=== PATIENT | male | born 1965 | race Caucasian/White ===

== ENCOUNTER 2024-08-28 06:05 | Emergency (ER) | payer MEDICAID, SELFPAY ==
[2024-08-28 06:05] VITALS: BMI 26.7
[2024-08-28 06:16] VITALS: BP 171/80; PULSE 78; RESP 18; TEMP 36.6; O2SAT 96
--- NOTE | 2024-08-28 06:35 | EDNOTE_ITS ---
<Statement entered by Alexandra Ventura MD - 08/29/24 15:27> As co-signing physician, I was present and available for consult prn. I concur with the plan and care as documented by the midlevel provider. ED Eye Problem RME/HPI General Chief complaint: Eye Problems Stated complaint: R eye redness, pain Time Seen by Provider: 08/28/24 06:34 Arrival date/time: 08/28/24 06:05 58-year-old male presents the emergency department stating he was putting a tree yesterday got something in his right eye patient reports irritation to the right eye. Patient reports no disturbances in vision Limitations: no limitations Related Data Previous Rx's ?Medication ?Instructions ?Recorded ibuprofen 600 mg tablet 600 mg PO Q6H #30 tabs 08/28/24 tobramycin 0.3 % eye drops 2 drp ophthalmic (eye) Q4H 5 days 08/28/24 #5 mL Allergies Allergy/AdvReac Type Severity Reaction Status Date / Time No Known Allergies Allergy Verified 10/06/21 01:25 Review of Systems Review of Systems Systems Reviewed: All systems reviewed, normal except as documented Constitutional Constitutional: Reports system reviewed and no additional complaints, except as documented, Denies fever(s) and Denies headache(s) Eyes Eyes: Reports system reviewed and no additional complaints, except as documented, Denies blurry vision, Denies decreased night vision, Denies diplopia, Denies eye discharge, Reports irritation and Reports other (Subconjunctival hemorrhage) ENT Ears, Nose, Mouth, and Throat: Reports system reviewed and no additional complaints, except as documented, Denies headache(s), Denies nasal congestion and Denies nasal discharge Cardiovascular Cardiovascular: Reports system reviewed and no additional complaints, except as documented, Denies chest pain and Denies dyspnea Respiratory Respiratory: Reports system reviewed and no additional complaints, except as documented, Denies chest congestion, Denies cough and Denies dyspnea Gastrointestinal Gastrointestinal: Reports system reviewed and no additional complaints, except as documented and Denies abdominal pain Integumentary/Breasts Skin/Breast: Reports system reviewed and no additional complaints, except as documented and Denies rash Neurologic Neurologic: Reports system reviewed and no additional complaints, except as documented, Reports as per HPI and Denies headache(s) Past Medical History Past Medical History CARDIAC: Positive Hypertension; Negative Congestive Heart Failure RESPIRATORY: Negative Chronic Obstructive Pulmonary Disease (COPD) GENITOURINARY: Negative Renal Disease ENDOCRINE: Negative Diabetes Mellitus Type 1 or Diabetes Mellitus Type 2 Social History SMOKING STATUS: Current every day smoker SECOND HAND EXPOSURE: Yes SUBSTANCE USE: does not use (Reports does not regularly use illicit drugs) and amphetamines OCCUPATION: [employer] ED Exam General Limitations: Present no limitations General appearance: Present alert and in no apparent distress Head Head exam: Present atraumatic, normocephalic and normal inspection Eye Eye exam: Present PERRL, EOMI, conjunctival injection and other (No hyphema) ENT ENT exam: Present normal exam, normal oropharynx and mucous membranes moist Neck Neck exam: Present normal inspection, full ROM and trachea midline Chest Chest inspection: Present normal inspection and symmetric chest wall rise Respiratory Respiratory exam: Present normal lung sounds bilaterally Cardiovascular Cardiovascular exam: Present regular rate, normal rhythm and normal heart sounds Abdominal Exam Abdominal exam: Present soft and normal bowel sounds Extremities Exam Extremities exam: Present normal inspection and full ROM Back Exam Back exam: Present normal inspection and full ROM Neurological Exam Neurological exam: Present alert, oriented X3 and CN II-XII intact Psychiatric Psychiatric exam: Present normal affect and normal mood Skin Skin exam: Present warm, dry, intact and normal color Course Quality Measures none Orders Category Date Time Status ED Eye Irrigation ONCE Care 08/28/24 06:34 Active Liu Lamp to Bedside X1 Care 08/28/24 06:34 Active Fluorescein Sodium [[id number]] Med 08/28/24 06:34 Discontinued 1 mg RIGHT EYE X1 ONE TETRACAINE Op Jessica 0.5% [Pontocaine Op Jessica 0.5%] Med 08/28/24 06:34 Discontinued 1 drop RIGHT EYE X1 ONE Vital Signs Vital signs: Vital Signs Temperature 97.9 F 08/28/24 06:16 Pulse Rate 78 08/28/24 06:16 Respiratory Rate 18 08/28/24 06:16 Blood Pressure 171/80 H 08/28/24 06:16 Pulse Oximetry (%) 96 08/28/24 06:16 Oxygen Delivery Method Room Air 08/28/24 06:16 O2 saturation 96% room air within normal limits Procedures -ED Liu Lamp Exam Right eye: Flourescein uptake:: Yes Liu Lamp Findings: Normal Eye MDM Narrative MDM Narrative:: 58-year-old male presents the emergency department stating he was putting a tree yesterday got something in his right eye patient reports irritation to the right eye. Patient reports no disturbances in vision On exam pupils are equal bilaterally and both reactive On exam patient does have conjunctival injection, some conjunctival hemorrhage right eye. Patient ports no headache no disturbances in vision no dizziness or weakness Liu lamp exam performed right eye irrigated debris removed from right eye pt feels significantly better patient given course of antibiotics and has strict instructions to follow-up with eye doctor as soon as possible I did explain to the patient if he develops any disturbances in vision he must return to the ER for further evaluation and treatment immediately Patient data External records reviewed:: [facility] previous records Clinical information provided by:: patient Social determinants that could affect healthcare access:: substance use Patient has the following chronic illnesses:: See history How is presenting disease/condition affected by chronic disease/condition?: uneffected by Evaluation data The following diagnostics were reviewed and interpreted by me:: other (specify) (N/A) Lab and/or radiology exams considered but not ordered:: Consider not ordered Interpretation Summary: N/A Medications / Prescriptions Medications or Prescriptions considered but not ordered:: Given Medication administrations:: Medication Administration History Discontinued Medications Fluorescein Sodium (Fluorescein Sod 1 Mg Strp) 1 mg RIGHT EYE X1 ONE Stop: 08/28/24 06:35 Last Admin: 08/28/24 06:38 Dose: 1 mg Documented By: ALBERTO Tetracaine HCl (Tetracaine Pf Op Jessica 0.5% 4 Ml Drpette) 1 drop RIGHT EYE X1 ONE Stop: 08/28/24 06:35 Last Admin: 08/28/24 06:38 Dose: 1 drop Documented By: ALBERTO Comments: Endy Posey NP administration of Drops Given Consultations Consultation(s) initiated? (list below): No Diagnosis Eye Problem Differential Diagnosis: corneal abrasion, conjunctivitis and corneal ulcer Most likely diagnosis given after review of the tests above:: Subconjunctival hemorrhage, right eye irritation Admission Indicated Admission indicated?: not indicated Admission Request Was there a request for admission?: No Disposition Plan Disposition Plan: Discharge Discharge Attestation Discharge Attestation: The patient and all family members were given an opportunity to ask questions and understood the discharge instructions. Discharge instructions specifically effects, indications for sooner follow up or return to the emergency department, and the expected course of current diagnosis. Patient condition: Stable Discharge Plan Plan Patient Disposition: HOME (Self Care) Disposition Comment: Stable Prescriptions/Referrals Prescriptions/Med Rec: New tobramycin 0.3 % drops 2 drp ophthalmic (eye) Q4H 5 Days Qty: 5 0RF ibuprofen 600 mg tablet 600 mg PO Q6H Qty: 30 0RF Problem List Clinical Impression: Subconjunctival hemorrhage, Corneal irritation of right eye Patient/Caregiver Discharge Instructions Education Materials: ED Subconjunctival Hemorrhage Additional Instructions: Please follow-up with eye doctor in the next 24 to 48 hours for worsening symptoms or concerns or any disturbances in vision return immediately Print Language: Polish Stand Alone Forms: Ashley Award Info., Patient Portal Info Letter PA/FILBERT GROWER Supervising Physician PA/FILBERT GROWER Supervising Physician: Dr. VENTURA
[2024-08-28] MEDS: TETRACAINE PF OP SOL 0.5% 4 ML DRPETTE 1 DROP RIGHT EYE (06:38)
[2024-08-28] MEDS: FLUORESCEIN SOD 1 MG STRP RIGHT EYE (06:38)
== END 2024-08-28 06:56 | disposition home or self-care (01) ==
LOC: SERX 06:58
PROVIDERS: Emergency Provider Emergency Medicine
DX: H11.31 Conjunctival hemorrhage, right eye (principal)
CPT/HCPCS: 99283